=== PATIENT | male | born 1970 | race Caucasian/White ===

== ENCOUNTER 2017-03-13 02:18 | Emergency (ER) | payer MEDICAID, OTHER ==
[~2017-03-13] VITALS: Ht 175.3 cm; Wt 72.6 kg
--- NOTE | 2017-03-13 02:18 | NUR ---
pt renetta thorne home, per local announcer report, pt called 911 after pt threatened to hurt himself with a knife. Pt AOx3 w/ resp even & unlabored, denies SI/HI, denies threatening to hurt himself, admits to taking Xanax 3mg w/ whisky today. pt placed on continuous monitoring. [employer] officers at bedside talking w/ pt. Pending further victorino thorne MD.
--- NOTE | 2017-03-13 02:43 | NUR ---
Dr. Hernandez at bedside for further eval.
--- NOTE | 2017-03-13 02:52 | NUR ---
automotive refinish technician at bedside for blood draw.
--- NOTE | 2017-03-13 03:10 | NUR ---
pt given phone, talking w/ dad on phone, speaking full & complete sentences, cooperative at this time w/ nad noted. On continuous monitoring.
[2017-03-13 03:20] LABS: BASOPHILS % (AUTO) 0.5 % (0.0-2.0); EOSINOPHILS # (AUTO) 0.3 /CMM (0.0-0.7); HEMATOCRIT 46 % (39-51); HEMOGLOBIN 15.8 g/dL (13.5-17.5); LYMPHOCYTES # (AUTO) 1.4 /CMM (0.8-4.8); LYMPHOCYTES % (AUTO) 24.3 % (20.0-44.0); MEAN CORPUSCULAR HEMOGLOBIN 33 PG (26.0-33.0); MEAN CORPUSCULAR HGB CONC 35 g/dl (31.0-36.0); MEAN CORPUSCULAR VOLUME 95 fL (80-96); MONOCYTES # (AUTO) 0.3 /CMM (0.1-1.30); MONOCYTES % (AUTO) 5.2 % (2.0-12.0); NEUTROPHILS # (AUTO) 3.8 /CMM (1.8-8.9); PLATELET COUNT (AUTO) 276 /CMM (150-450); RDW COEFFICIENT OF VARIATION 13.1 (11.5-15.0); RED BLOOD CELL COUNT(AUTO) 4.83 MIL/uL (4.5-6.0); WHITE BLOOD COUNT (AUTO) 5.9 K/uL (4.3-11.0)
[2017-03-13 03:25] LABS: APPEARANCE,URINE CLEAR (CLEAR); BILIRUBIN,URINE NEGATIVE (NEGATIVE); BLOOD, URINE NEGATIVE Ery/uL (NEGATIVE); COLOR,URINE YELLOW (YELLOW); KETONES,URINE NEGATIVE (NEGATIVE); LEUKOCYTE ESTERASE ,URINE NEGATIVE (NEGATIVE); NITRITE, URINE NEGATIVE (NEGATIVE); PROTEIN,URINE NEGATIVE (NEGATIVE); UGLUCOSE NEGATIVE (NEGATIVE); UROBILINOGEN,URINE 0.2 EU/dL (0.2)
[2017-03-13 03:40] LABS: ALBUMIN 3.9 g/dL (3.4-5.0); BILIRUBIN,DIRECT 0.1 mg/dL (0.0-0.2); BILIRUBIN,TOTAL 0.6 mg/dL (0.2-1.0); CALCIUM, SERUM 8.9 mg/dL (8.5-10.1); CREATININE 0.9 mg/dL (0.6-1.3); POTASSIUM 4.3 mmol/L (3.5-5.1); SALICYLATE 2.9 mg/dL (2.8-20.0); TOTAL PROTEIN, SERUM 7.4 g/dL (6.4-8.2)
--- NOTE | 2017-03-13 04:02 | NUR ---
pt asleep in bed w/ resp even & unlabored, easily arousable w/ nad noted. On continuous monitoring. Awaiting psych eval.
--- NOTE | 2017-03-13 04:57 | NUR ---
Art, [employer] SCIENCE TEACHER at bedside for psych eval.
--- NOTE | 2017-03-13 05:36 | NUR ---
pt ambulatory w/ steady gait, resp even & unlabored, denies any pain, no sob w/ nad noted. pt requesting to leave at this time. Patient discharged to home in stable condition. Written and verbal after care instructions given. Patient verbalizes understanding of instruction.
[2017-03-13 05:39] VITALS: BP 138/78
== END 2017-03-13 05:40 | disposition home or self-care (01) ==
LOC: ER 02:20
DX: F14.10 Cocaine abuse, uncomplicated (principal); F15.10 Other stimulant abuse, uncomplicated; F17.200 Nicotine dependence, unspecified, uncomplicated; I10 Essential (primary) hypertension; Z98.890 Other specified postprocedural states
CPT/HCPCS: 36415; 80048; 80076; 80305; 80329; 81001; 85025; 99284; A4606; G0480 ×2; Z7610; 81000-TC